=== PATIENT | female | born 1955 | race African-American/Black ===

== ENCOUNTER 2019-10-21 23:26 | Emergency (ER) | payer OTHER ==
[~2019-10-21] VITALS: Ht 172.7 cm; Wt 97.5 kg
[2019-10-21 23:31] VITALS: BP 119/73
[2019-10-21] MEDS ORDERED: LYRICA200 MG PO (23:36)
[2019-10-21] MEDS ORDERED: CYMBALTA20 MG PO (23:37)
[2019-10-21] MEDS ORDERED: LIPITOR 20 MG T20 M1 PO (23:37)
[2019-10-21] MEDS ORDERED: SYMBICORT160 MCG/4. (23:38)
[2019-10-21] MEDS ORDERED: PROTONIX 20 MG20 MG PO (23:38)
[2019-10-21] MEDS ORDERED: VITAMIN B12-FO1 EAC1 PO (23:50)
[2019-10-21] MEDS ORDERED: VITAMIN D3250 MC1 PO (23:50)
[2019-10-21] MEDS ORDERED: PRESERVISION T1 EACH PO (23:51)
[2019-10-21] MEDS ORDERED: PREDNISONE 20 M20 MG PO (23:52)
== END 2019-10-22 00:10 | disposition home or self-care (01) ==
LOC: ER 23:26
DX: L50.9 Urticaria, unspecified (principal); Z79.899 Other long term (current) drug therapy; Z91.040 Latex allergy status; Z87.891 Personal history of nicotine dependence

== ENCOUNTER → 2020-01-01 | Outpatient (CLI) | payer OTHER ==
[~2020-01-01] VITALS: Ht 172.7 cm; Wt 103.9 kg
[~2020-01-01] MED LIST: CYMBALTA60 MG PO; GLUMETZA500 PO; HYDROCODON-ACE1 EAC7 PO; LIPITOR 20 MG T20 M1 PO; LYRICA200 MG PO; PREDNISONE 20 M20 MG PO; PRESERVISION T1 EACH PO; PROTONIX 20 MG20 MG PO; PROTONIX40 M2 PO; SYMBICORT160 MCG/4.; VITAMIN B12-FO1 EAC1 PO; VITAMIN D3250 MC1 PO
--- NOTE | ~2020-01-01 | HPC ---
[facility] [place] [address] PAIN MANAGEMENT CONSULTATION Name: MICHAEL VACA Room #: REG MASSIMO Chu.#: [id number] Admission: 01/01/20 Attend Phys: Rosalinda Greene MD Discharge: Date of : 55 Report #: [id number] THIS REPORT FOR: cc: Elza Mares DNP, Mary E. DNP Brown, N. Wayne MD ~ CC: Elza Greene DATE OF SERVICE: 01/01/2020 CHIEF COMPLAINT: "I would like a knee injection." HISTORY: The patient is a 64-year-old female who has been referred to the pain clinic. She states that she is having a stabbing discomfort involving her knee. She states that it is quite problematic. It is constantly painful. She has had injections in the past and found that they were helpful. She describes her discomfort as continuous, constant, throbbing, sharp, stabbing and tender. She rates her pain as a 20/10. Her last injection was in the [facility] at [place]. She has noted some swelling in the left knee. It is warm to touch. She is having difficulty ambulating because of this. ALLERGIES: LATEX. CURRENT MEDICATIONS: Aspirin 81 mg, Lipitor 40 mg, Symbicort, cyclobenzaprine 5 mg, Cymbalta 60 mg, metformin 500 mg, Protonix 40 mg, Lyrica 200 mg, Kenalog ointment 0.1%. PAST MEDICAL HISTORY: 1. Lower esophageal hemorrhage, rectal hemorrhage. 2. Diabetes. 3. Pulmonary emphysema. 4. Cardiovascular -- essential hypertension. 5. Rotator cuff tear. 6. Eczema. 7. Spondylosis of cervical spine without myelopathy. 8. Primary arthritis of the right knee. 9. Pain in the left knee. 10. Chronic low back pain. 11. Hyperlipidemia. 12. Spinal stenosis of the cervical region. PAST SURGICAL HISTORY: Abdominal hernia repair, rotator cuff repair, right 10/2018. SOCIAL HISTORY: She is retired, has not worked in the last 4 years. [facility] [address] [place] [address] PAIN MANAGEMENT CONSULTATION Name: JAVAD VACAINE Room #: REG [facility].#: [id number] Admission: 01/01/20 Attend Phys: Rosalinda Greene MD Discharge: Date of : 55 Report #: [id number] REVIEW OF SYSTEMS: Generally good health, shortness of breath when lying flat, rectal bleeding, change in hair and nails, numbness and tingling sensation, slow to heal from cuts. PAIN CLINIC ASSESSMENT AND PQRS: 1. The patient does have some arthritic changes in her ____. Has some arthritic changes in her knees. The patient is not being treated for rheumatoid arthritis. 2. Height 5 feet 8 inches, weight 234 pounds, BMI to be calculated. Blood pressure 130/90, heart rate 86, temperature 97.3. PHYSICAL EXAMINATION: GENERAL: The patient is a well-developed, well-nourished black female. She is lying in bed. MUSCULOSKELETAL: She is complaining of severe pain involving her left knee. She is unable to ambulate easily. She walks with a very antalgic gait. She complains of pain and discomfort in the left knee. Palpation of the left knee reveals it to be somewhat edematous. It is tender to palpation. There is some warmth associated with it as compared to the right knee. The patient resists range of motion of the knee. IMPRESSION: 1. Severe left knee pain. 2. History of lumbar radicular pain improved with epidural steroid injection in the past. 3. History of knee injections. RECOMMENDATIONS: We discussed the patient's condition. She does complain of pain and discomfort involving the left knee. She is not sure exactly what medications were injected. She is not sure exactly when the last injection was. She was told to return to in the Pain Clinic at [facility] for pain management. She states that she has also talked to the orthopedic department and the possibility of needing a knee replacement or surgery. She has not followed through with that. We would recommend that the patient follow through with the Pain Clinic at [facility]. She states that they have done some workup with imaging regarding her knees. She has not followed up on what the findings were. We would recommend that she follow up with them. At this juncture, given that her knee is very sore, somewhat warm, I hesitate to inject the steroid in this area. She does have diabetes. So that would put her possibly at a higher rate of infection. We will have her follow up with the pain clinic and find out what the imaging regarding her knee and back were at [facility]. The patient has been provided hydrocodone 5/325, a total of 1 p.o. t.i.d. for 1 week. [facility] [address] [place] [address] PAIN MANAGEMENT CONSULTATION Name: MICHAEL VACA Room #: ZARINA Kiran#: [id number] Admission: 01/01/20 Attend Phys: Rosalinda Greene MD Discharge: Date of : 55 Report #: [id number] We would like to thank you for letting us participate in her care. We hope she continues to improve. By: [id number] Rosalinda Greene MD /nt
[2020-01-01 11:07] VITALS: BP 159/87
--- NOTE | 2020-01-01 11:39 | NUR ---
Pain Clinic Assessment: 1. History of Osteoarthritis: Right Upper Extremity Left Lower Extremity SPINE History of Rheumatoid Arthritis: Not Applicable 2. Height: 5 ft. 8 in. 172.7 cm. Weight: 229.0 lb. oz. 103.874 kg. Patient's BMI: 34.8 3. Vital Signs: BP: 159/87 Pulse: 92 Resp: 16 Temp: 02 Sat: 98 ECG Mon: 4. Pain Intensity: 8-9 5. Fall Risk: Dizziness: N Needs help standing or walking: Y Fallen in the last 3 months: N Fall risk comments: USES CANE 6. Patient on Blood Thinner: None 7. History of Hypertension: Y 8. Opioid Therapy greater than 6 weeks: N Opiate Contract Signed: 9. Risk Assessment Tool Provided: 10. Functional Assessment Tool: 11. Recreational Drug Use: Current within past 3 mos Drug Type: MARIJUNIA Tobacco Use: Former Smoker Tobacco Type: Cigarettes Amount or Packs/day: 1 How Many Years: 30 Alcohol Use: No Frequency: Quant:
== END ==
LOC: PAIN 07:01
PROVIDERS: ATTEND Anesthesiology Pain Medicine
DX: M25.562 Pain in left knee (principal); E11.9 Type 2 diabetes mellitus without complications; E78.5 Hyperlipidemia, unspecified; Z87.39 Personal history of other diseases of the musculoskeletal system and connective tissue; Z88.8 Allergy status to other drugs, medicaments and biological substances; Z79.899 Other long term (current) drug therapy

== ENCOUNTER 2020-03-01 10:38 | Emergency (ER) | payer OTHER ==
[~2020-03-01] VITALS: Ht 172.7 cm; Wt 90.7 kg
[2020-03-01] MEDS ORDERED: HYDROCODONE-AP1 EA11 PO (12:55)
[2020-03-01] MEDS ORDERED: NEOMYCIN-POLY-7.5 ML OPHTHALMIC (12:55)
[2020-03-01 15:04] VITALS: BP 146/90
== END 2020-03-01 15:04 | disposition short-term general hospital (02) ==
LOC: ER 10:38
DX: S05.02XA Injury of conjunctiva and corneal abrasion without foreign body, left eye, initial encounter (principal); S09.90XA Unspecified injury of head, initial encounter; M54.2 Cervicalgia; E11.9 Type 2 diabetes mellitus without complications; E78.5 Hyperlipidemia, unspecified; I10 Essential (primary) hypertension; Z79.899 Other long term (current) drug therapy; Z91.040 Latex allergy status; Z87.891 Personal history of nicotine dependence; Y04.2XXA Assault by strike against or bumped into by another person, initial encounter; Y93.89 Activity, other specified; Y92.89 Other specified places as the place of occurrence of the external cause; Y99.8 Other external cause status

== ENCOUNTER → 2020-04-01 | Outpatient (CLI) | payer OTHER ==
[~2020-04-01] VITALS: Ht 172.7 cm; Wt 100.2 kg
[~2020-04-01] MED LIST changes: +HYDROCODONE-AP1 EA11 PO; +NEOMYCIN-POLY-7.5 ML OPHTHALMIC; +TRIAMCINOLONE A15 G1 TP
[2020-04-01 10:08] VITALS: BP 128/85
--- NOTE | 2020-04-01 10:26 | NUR ---
Pain Clinic Assessment: 1. History of Osteoarthritis: Right Upper Extremity Left Lower Extremity SPINE History of Rheumatoid Arthritis: Not Applicable 2. Height: 5 ft. 8 in. 172.7 cm. Weight: 221.0 lb. oz. 100.245 kg. Patient's BMI: 33.6 3. Vital Signs: BP: 128/85 Pulse: 100 Resp: 16 Temp: 02 Sat: 96 ECG Mon: 4. Pain Intensity: 10 5. Fall Risk: Dizziness: N Needs help standing or walking: N Fallen in the last 3 months: N Fall risk comments: USES CANE 6. Patient on Blood Thinner: None 7. History of Hypertension: Y 8. Opioid Therapy greater than 6 weeks: N Opiate Contract Signed: 9. Risk Assessment Tool Provided: 10. Functional Assessment Tool: 11. Recreational Drug Use: Current within past 3 mos Drug Type: MARIJUANA Tobacco Use: Former Smoker Tobacco Type: Amount or Packs/day: How Many Years: Alcohol Use: Yes Frequency: Special Occasions Quant: 1
== END | disposition home or self-care (01) ==
LOC: PAIN 06:50
PROVIDERS: ATTEND Anesthesiology Pain Medicine
DX: M54.16 Radiculopathy, lumbar region (principal); M48.061 Spinal stenosis, lumbar region without neurogenic claudication; G89.29 Other chronic pain; I10 Essential (primary) hypertension; E11.9 Type 2 diabetes mellitus without complications; E78.5 Hyperlipidemia, unspecified; M19.90 Unspecified osteoarthritis, unspecified site; J43.9 Emphysema, unspecified; Z98.890 Other specified postprocedural states; Z79.899 Other long term (current) drug therapy; Z91.040 Latex allergy status

== ENCOUNTER → 2020-04-04 | Outpatient (CLI) | payer OTHER | LOC: BC 09:37 | PROVIDERS: ATTEND Nurse Practitioner | DX: Z12.31 Encounter for screening mammogram for malignant neoplasm of breast (principal) ==

== ENCOUNTER → 2020-04-27 | Outpatient (CLI) | payer OTHER ==
[~2020-04-27] VITALS: Ht 172.7 cm; Wt 100.7 kg
[2020-04-27 12:30] VITALS: BP 138/74
--- NOTE | 2020-04-27 12:35 | NUR ---
Pain Clinic Assessment: 1. History of Osteoarthritis: Right Upper Extremity Left Lower Extremity SPINE History of Rheumatoid Arthritis: Not Applicable 2. Height: 5 ft. 8 in. 172.7 cm. Weight: 222.0 lb. oz. 100.699 kg. Patient's BMI: 33.8 3. Vital Signs: BP: 138/74 Pulse: 103 Resp: 18 Temp: 02 Sat: 95 ECG Mon: 4. Pain Intensity: 10 5. Fall Risk: Dizziness: N Needs help standing or walking: N Fallen in the last 3 months: N Fall risk comments: USES CANE 6. Patient on Blood Thinner: None 7. History of Hypertension: Y 8. Opioid Therapy greater than 6 weeks: N Opiate Contract Signed: 9. Risk Assessment Tool Provided: 10. Functional Assessment Tool: 11. Recreational Drug Use: Current within past 3 mos Drug Type: MJ Tobacco Use: Former Smoker Tobacco Type: Cigarettes Amount or Packs/day: How Many Years: Alcohol Use: Yes Frequency: Special Occasions Quant:
== END ==
LOC: PAIN 06:45
PROVIDERS: ATTEND Anesthesiology Pain Medicine
DX: M48.061 Spinal stenosis, lumbar region without neurogenic claudication (principal); M54.16 Radiculopathy, lumbar region; I10 Essential (primary) hypertension; E11.9 Type 2 diabetes mellitus without complications; E78.5 Hyperlipidemia, unspecified; M47.812 Spondylosis without myelopathy or radiculopathy, cervical region; M48.02 Spinal stenosis, cervical region; J43.9 Emphysema, unspecified; Z91.040 Latex allergy status; Z79.899 Other long term (current) drug therapy; Z98.890 Other specified postprocedural states

== ENCOUNTER 2020-05-12 10:37 | Emergency (ER) | payer OTHER ==
[~2020-05-12] VITALS: Ht 172.7 cm; Wt 99.8 kg
[2020-05-12 10:38] VITALS: BP 143/83
[2020-05-12 11:20] LABS: ABSOLUTE NEUTROPHILS 5.8 thou/uL (1.4-8.2); BASOPHILS 0.9 % (0.0-2.0); EOSINOPHILS 1.3 % (0.0-3.0); HEMATOCRIT 44.7 % (37.0-47.0); HEMOGLOBIN 15.2 gm/dL (12.0-15.0); LYMPHOCYTES 30.9 % (24.0-44.0); MCH 30.8 pg (26.0-34.0); MCHC 33.9 g/dL (28.0-37.0); MCV 90.7 fL (80.0-100.0); MONOCYTES 8.3 % (1.0-8.0); PLATELET COUNT 382 thou/uL (150-400); POLYS 58.6 % (36.0-66.0); RBC 4.93 mil/uL (4.20-5.00); RDW 14.1 % (10.5-14.5); WBC 9.8 thou/uL (4.0-11.0)
[2020-05-12 11:27] LABS: CALCIUM 9.1 mg/dL (8.5-10.1); CREATININE 0.7 mg/dL (0.6-1.0); POTASSIUM 4.7 mmol/L (3.5-5.1)
[2020-05-12 11:33] LABS: ALBUMIN 3.4 g/dL (3.4-5.0); TOTAL BILIRUBIN 0.3 mg/dL (0.2-1.0); TOTAL PROTEIN 7.5 g/dL (6.4-8.2)
[2020-05-12] MEDS ORDERED: NORCO5 PO (13:47)
== END 2020-05-12 14:35 | disposition home or self-care (01) ==
LOC: ER 10:37
PROVIDERS: Physician Assistant
DX: R59.0 Localized enlarged lymph nodes (principal); J02.9 Acute pharyngitis, unspecified; E78.5 Hyperlipidemia, unspecified; Z87.891 Personal history of nicotine dependence; Z98.890 Other specified postprocedural states; Z79.899 Other long term (current) drug therapy; Z91.040 Latex allergy status

== ENCOUNTER → 2020-08-31 | Outpatient (CLI) | payer OTHER ==
[~2020-08-31] VITALS: Ht 172.7 cm; Wt 94.2 kg
[~2020-08-31] MED LIST changes: +NORCO5 PO
[2020-08-31 09:44] VITALS: BP 120/82
--- NOTE | 2020-08-31 10:02 | NUR ---
Pain Clinic Assessment: 1. History of Osteoarthritis: Right Upper Extremity Left Lower Extremity SPINE History of Rheumatoid Arthritis: Not Applicable 2. Height: 5 ft. 8 in. 172.7 cm. Weight: 207.6 lb. oz. 94.167 kg. Patient's BMI: 31.6 3. Vital Signs: BP: 120/82 Pulse: 94 Resp: 16 Temp: 02 Sat: 96 ECG Mon: 4. Pain Intensity: 10 5. Fall Risk: Dizziness: N Needs help standing or walking: N Fallen in the last 3 months: N Fall risk comments: USES CANE 6. Patient on Blood Thinner: None 7. History of Hypertension: Y 8. Opioid Therapy greater than 6 weeks: N Opiate Contract Signed: 9. Risk Assessment Tool Provided: 10. Functional Assessment Tool: 11. Recreational Drug Use: Current within past 3 mos Drug Type: MARIJUANA Tobacco Use: Former Smoker Tobacco Type: Amount or Packs/day: How Many Years: Alcohol Use: Yes Frequency: Special Occasions Quant: 2
== END | disposition home or self-care (01) ==
LOC: PAIN 05-25 10:16
PROVIDERS: ATTEND Anesthesiology Pain Medicine
DX: M25.562 Pain in left knee (principal); G89.29 Other chronic pain; M48.061 Spinal stenosis, lumbar region without neurogenic claudication; M48.02 Spinal stenosis, cervical region; M47.22 Other spondylosis with radiculopathy, cervical region; I10 Essential (primary) hypertension; E11.9 Type 2 diabetes mellitus without complications; E78.5 Hyperlipidemia, unspecified; J43.8 Other emphysema; M19.90 Unspecified osteoarthritis, unspecified site; Z98.890 Other specified postprocedural states; Z79.899 Other long term (current) drug therapy; Z91.040 Latex allergy status; Z87.891 Personal history of nicotine dependence